=== PATIENT | male | born 1945 | race Caucasian/White ===

== ENCOUNTER 2017-01-26 20:50 | Inpatient (IN) | payer OTHER ==
[~2017-01-26] VITALS: Ht 175.3 cm; Wt 93.1 kg
--- NOTE | ~2017-01-26 | 2DMMODE ---
[facility] [address] [place] [address] 2 D/M-MODE ECHOCARDIOGRAM Name: ELEUTERIO GIRON Room #: 243-P [facility] IN ..#: [id number] Admission: 01/26/17 Attend Phys: Shannon Breen Discharge: Date of : 43 Date of Service: 01/27/17 1534 Report #: [id number] THIS REPORT FOR: //name// APPROVED REPORT EXAM: Comprehensive 2D, Doppler, and color-flow Echocardiogram Patient Location: Bedside Blood Pressure: 137/77 mmHg HR: 80 bpm Other Information Study Quality: Good Indications CAD Hypertension/HDD AAA with Graft repair 2D Dimensions RVDd: 36.25 mm LVEF(%): 64.55 (>50%) IVSd: 13.78 (7-11mm) LVOT Diam: 24.47 (18-24mm) LVDd: 53.35 mm PWd: 14.08 (7-11mm) Ascending Aorta: 32.43 mm LVDs: 34.38 (25-40mm) IVC: 23.00 mm Aortic Root: 36.00 mm Gallegos's LVEF: 64.55 % Volumes Left Atrial Volume (Systole) Single Plane 4CH: 46.48 mL Single Plane 2CH: 45.16 mL LA ESV Index: 26.00 mL/m2 Aortic Valve AoV Peak Larry.: 1.58 m/s AI PHT: 428.70 ms AO Peak Gr.: 9.93 mmHg LV Max P.09 mmHg LV Max: 1.13 m/s AI Vmax: 4.03 m/s AI Tompkins: 3.20 m/s2 Mitral Valve MV PHT: 56.82 ms MV E Max Larry.: 0.65 m/s E/A Ratio: 0.8 [facility] [place] [address] 2 D/M-MODE ECHOCARDIOGRAM Name: GIRONELEUTERIO Shelley Room #: 243-P [facility] IN ..#: [id number] Admission: 01/26/17 Attend Phys: Shannon Breen Discharge: Date of : 43 Date of Service: 01/27/17 1534 Report #: [id number] MV A Larry.: 0.82 m/s MV Decel. Time: 195.93 ms Pulmonary Valve PV Peak Larry.: 1.32 m/s PV Peak Gr.: 5.30 mmHg MI End Vmax: 1.32 m/s Tricuspid Valve TR Peak Larry.: 2.55 m/s RAP Estimate: 10.00 mmHg TR Peak Gr.: 25.98 mmHg Left Ventricle The left ventricle is normal size. There is normal LV segmental wall motion. Mild concentric left ventricular hypertrophy. The left ventricular systolic function is normal. The left ventricular ejection fraction is within the normal range. LVEF is 60-65%. Left ventricular filling pattern is normal for age. Right Ventricle The right ventricle is normal size. The right ventricular systolic function is normal. Atria The left atrium size is normal. Atrial septum is hypermobile. The right atrium size is normal. Aortic Valve The aortic valve is normal in structure. Aortic valve is calcified. Aortic valve is trileaflet. Mild aortic regurgitation. Mitral Valve The mitral valve is normal in structure. Trace mitral regurgitation. Tricuspid Valve The tricuspid valve is normal in structure. There is trace tricuspid regurgitation. The right atrial pressure is estimated at 10 mmHg. There is mild pulmonary hypertension. Pulmonic Valve The pulmonary valve is normal in structure. Trace to mild pulmonic regurgitation. Great Vessels IVC is dilated and collapses >50% with inspiration. [facility] [address] [place] [address] 2 D/M-MODE ECHOCARDIOGRAM Name: ELEUTERIO GIRON Room #: 243-P [facility] IN ..#: [id number] Admission: 01/26/17 Attend Phys: Shannon Breen Discharge: Date of : 43 Date of Service: 01/27/17 1534 Report #: [id number] Pericardium There is no pericardial effusion. <Conclusion> The left ventricular systolic function is normal. Grade I diastolic dysfunction. There is normal LV segmental wall motion. LVEF is 60-65%. The aortic valve is calcified, trileaflet, mildly insufficient. The mitral valve is normal in structure. Trace regurgitation. There is no pericardial effusion. <ELECTRONICALLY SIGNED> By: Paulino Arellano MD, [facility] 01/27/17 1534 1534 1534 Paulino Arellano MD, [facility] /INF
--- NOTE | ~2017-01-26 | HC ---
[facility] [place] [address] CONSULTATION Name: ELEUTERIO GIRON Room #: 243-P [facility] IN M.R.#: [id number] Admission: 01/26/17 Attend Phys: Shannon Ibrahim Discharge: Date of : 43 Report #: [id number] THIS REPORT FOR: //name// CC: Shannon Kahn REASON FOR CONSULTATION: Preoperative abdominal aortic aneurysm resection, history of coronary artery disease. HISTORY OF PRESENT ILLNESS: The patient is a 71-year-old gentleman, who has been seen previously by Dr. Castro. He originally presented many years ago with an episode of what sounds like suddenly cardiac . It was during this time that multivessel coronary artery disease was identified and he underwent surgical revascularization. His left ventricular systolic function is normal. Over the past couple of days, he has noticed his right lower abdominal pain and right groin pain. We have seen in the Emergency Department where evaluation demonstrated a large infrarenal abdominal aortic aneurysm with a stent graft in place and proximal type 1 endoleak. Aneurysm under pressure itself measured about 8 cm. It was significantly hypertensive. He denies chest heaviness or pressure. He usually does check his blood pressure at home. He denies heart failure symptoms including orthopnea, paroxysmal nocturnal dyspnea, lower extremity edema. 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 ALLERGIES: He is allergic to MORPHINE and CODEINE. MEDICATIONS: He takes no medicines on a regular basis. PAST MEDICAL HISTORY: Notable for hypertension, dyslipidemia, abdominal aortic aneurysm stent grafting, coronary artery bypass grafting in 2003. SOCIAL HISTORY: He is a nonsmoker and nondrinker. FAMILY HISTORY: Unremarkable for premature coronary artery disease. REVIEW OF SYSTEMS: All systems negative except as that noted above. PHYSICAL EXAMINATION: GENERAL: Reveals a pleasant gentleman, who is pain free, he is alert. VITAL SIGNS: Blood pressure is 170/57, heart rate of 87 and regular. He is afebrile, 5 feet 9 inches tall, 187 pounds. HEENT: There are neither xanthelasma, subcutaneous xanthomata, oral mucosal or digital cyanosis or kyphoscoliosis present. CHEST: Clear to auscultation and percussion. CARDIOVASCULAR: Regular rate and rhythm with a 1 to 2/6 systolic ejection murmur at the base. [address] [address] CONSULTATION Name: ELEUTERIO GIRON Room #: [facility] IN M.R.#: [id number] Admission: 01/26/17 Attend Phys: Shannon Ibrahim Discharge: Date of : 43 Report #: [id number] ABDOMEN: Soft, pulsatile midline fullness. EXTREMITIES: Without cyanosis, clubbing or edema. Radial pulses are 2+. NEUROLOGIC: He is alert with a nonfocal exam. LABORATORY DATA: Sodium 137, potassium 3.6, creatinine 1.1. Troponin 0. White count 6.9, hemoglobin 14, hematocrit 41, platelet count 217. EKGs, sinus rhythm, right bundle branch block. CT of the abdomen demonstrates 8.3 x 8.4 cm aortic aneurysm with extravasation suggesting endoleak at the proximal anastomosis. Chest x-ray is normal. Echocardiogram, I have reviewed demonstrated normal left ventricular systolic function with mild calcific aortic valve changes without stenosis. Mild aortic insufficiency. IMPRESSION: 1. Large abdominal aortic aneurysm with endoleak. 2. Hypertensive urgency. 3. Dyslipidemia. 4. Coronary artery disease with prior bypass; normal left ventricular systolic function. RECOMMENDATIONS: 1. Aggressive blood pressure management with institution of MARIELA inhibitor, beta blockade. 2. No contraindications exist to proceeding with what appeared to be a fairly urgent open abdominal aortic aneurysm resection. We do not have luxury of performing provocative testing to exclude provocable ischemia in this setting. These issues were discussed with the patient and his family. I will follow along with you. Thank you for asking me to participate in his care. <ELECTRONICALLY SIGNED> By: Paulino Arellano MD, FACC 01/28/17 1215 1602 2351 Paulino Arellano MD, FACC /nt
--- NOTE | ~2017-01-26 | S ---
[facility] [place] [address] SURGICAL PATH RPT PROCEDURE Name: FLOYD MELLO Room #: 243-P ADM IN M.R.#: [id number] Admission: 01/26/17 Date of : 43 Discharge: Report #: [id number] Path Case #: [id number] PATHOLOGY REPORT COLLECTION DATE: 01/30/2017 RECEIVED DATE: 01/30/2017 SUBMITTING PHYS: Dr. Lb Palomares OTHER PHYS: Dr. Shannon Kahn SPECIMEN(S) RECEIVED: A.Abdominal aneurysm * * * * * * * * * * * * FINAL DIAGNOSIS: Abdominal aortic aneurysm, repair: - Fibrinous material associated with associated degenerative changes. - Small portion showing partial aortic wall with myxoid degeneration as well as exudate. (IUV:csd; d/t: 01/31/2017) PATHOLOGIST: Rebekah Wadsworth M.D. REPORT ELECTRONICALLY SIGNED BY: Rebekah Wadsworth M.D. DATE/TIME: 01/31/2017 16:17 * * * * * * * * * * * * GROSS PATHOLOGY: The specimen is received in formalin labeled "Floyd Mello, abdominal aortic grumous". Received is a large amount of light quezada to pink-quezada exceed 8 with attached possible vascular tissue measuring 15.9 x 12.5 x 4.1 cm in aggregate dimensions. The specimen is submitted representatively in cassette A1. (CAA; 01/30/2017) CLINICAL HISTORY: Leaking aortic stents INITIAL CPT CODE(S): A; 77153 Professional services performed by [facility] at [facility] [address], [place] [address] Technical services performed by [facility] at [address] [place] [address] [place] [address] SURGICAL PATH RPT PROCEDURE Name: FLOYD MELLO Room #: 243-P ADM IN M.R.#: [id number] Admission: 01/26/17 Date of : 43 Discharge: Report #: [id number] Path Case #: [id number] [place] [address]. [facility] [address] [place] [address] PHONE: [phone] DIRECTOR: Lux Wahl M.D. * * * END OF REPORT * * *
--- NOTE | ~2017-01-26 | HC ---
[facility] [place] [address] CONSULTATION Name: ELEUTERIO GIRON Room #: 243-P ADM IN .R.#: [id number] Admission: 01/26/17 Attend Phys: Shannon Ibrahim Discharge: Date of : 43 Report #: [id number] THIS REPORT FOR: //name// CC: Shannon Kahn DATE OF SERVICE: 01/27/2017 We were asked to see the patient by the emergency physicians. HISTORY OF PRESENT ILLNESS: The patient is a 71-year-old admitted with a recent history of right groin pain. Symptoms have been waxing and waning for a week. The patient describes it as sharp and puts it at 5/10 scale. The patient also had a similar episode a couple of weeks ago. The patient states that this seems to have been precipitated by some stressful events recently. When seen in the Emergency Department, blood pressure was elevated. The patient admits to having hypertension and does not take medication for it at home. We also note that the patient has a history of an abdominal aortic stent graft placed in [address] scan ordered by the Emergency Department shows a large infrarenal abdominal aortic aneurysm. There is a stent graft in place, but there does appear to be a type 1 endoleak at the proximal neck. It is not well characterized; however, due to the timing of the contrast, the distal portion of the graft seems to be in good position without any evidence of leak at this point. The aneurysm itself is 8 cm, and as mentioned, does appear to be pressurized. There is no leak of the aneurysm per se rather simply an endoleak. The patient has a history of hypertension that is not well treated. MEDICATIONS AT HOME: Aspirin and omega-3 fatty acids. The patient is not taking any antihypertensives, no other blood thinning medication. ALLERGIES: None known. 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 FAMILY HISTORY: No family history of aneurysm. REVIEW OF SYSTEMS: CONSTITUTIONAL: No fever or chills, malaise. RESPIRATORY: Had a chest cold about a month ago, but no recent cough or sputum [facility] [address] [place] [address] CONSULTATION Name: ELEUTERIO GIRON Shelley Room #: 243-P [facility] IN .R.#: [id number] Admission: 01/26/17 Attend Phys: Shannon Ibrahim Discharge: Date of : 43 Report #: [id number]. CARDIOVASCULAR: No angina, no shortness of breath with exertion. GASTROINTESTINAL: No nausea, vomiting or diarrhea. GENITOURINARY: No dysuria or hematuria. MUSCULOSKELETAL: No bone or joint pain. SKIN: No rash or infection. NEUROLOGIC: No motor or sensory dysfunction, no headache, loss of consciousness. HEENT: Eyes, wears glasses. Denies headache. As mentioned, had a recent upper respiratory tract infection, but none now. PHYSICAL EXAMINATION: VITAL SIGNS: Currently, blood pressure 111/64 on an IV Cardene drip, heart rate 86, respiratory rate 20, O2 sat 99 on room air. HEENT: Normocephalic, gaze conjugate. Pupils equal, round. NECK: No mass, no bruit. CHEST: Clear. HEART: Rhythm is regular. ABDOMEN: Soft, no mass, no tenderness. EXTREMITIES: Pulses 2+ femoral, popliteal, dorsalis pedis, posterior tibial . SKIN: No rash or infection. NEUROLOGIC: No motor or sensory loss. PSYCHIATRIC: Affect, mood is somewhat appropriate basically and somewhat of denial, but does seem to understand issues. MUSCULOSKELETAL: No bone or joint dyssymmetry or deformity. IMPRESSION AND PLAN: The patient has a pressurized large abdominal aortic aneurysm that may have been symptomatic recently. The patient states that since blood pressure has been controlled, pain is better, but I am concerned that this large aneurysm is throughout and there is clear endoleak. I have suggested that we repair this on this admission even though it is probably not a new problem. The patient has had inadequate followup with a CT scan only once from the time of the initial stent graft implant and I suspect that this has been insidious growth related to a type 1 endoleak. Risks and details of surgery were discussed. Options and alternatives were reviewed. The patient understands all of this and will reflect and I will review the studies with Dr. Rubi and we will see if we can proceed later. Thank you for the consult. <ELECTRONICALLY SIGNED> By: Lb Palomares MD 02/01/172009 0810 1013 Lb Palomares MD /nt
--- NOTE | ~2017-01-26 | HC ---
[facility] [place] [address] CONSULTATION Name: ELEUTERIO GIRON Room #: 216-P [facility] IN .R.#: [id number] Admission: 01/26/17 Attend Phys: Shannon Ibrahim Discharge: Date of : 43 Report #: [id number] THIS REPORT FOR: //name// CC: Shannon Kahn DATE OF SERVICE: 02/01/2017 ICU Renal Consultation REASON FOR CONSULTATION: Acute kidney injury following open abdominal aortic aneurysm repair. HISTORY OF PRESENT ILLNESS: This 71-year-old male has a longstanding history of atherosclerotic cardiovascular disease. He underwent coronary artery bypass surgery in 2002. He was found to have an enlarging abdominal aortic rhythm in 2010 and underwent percutaneous stent graft at [facility]. He presented to the hospital on 01/26/2017 with complaints of acute abdominal pain and underwent evaluation with findings of a leaking stent graft based upon CT findings. He was taken to the operating room where he underwent an open abdominal aortic aneurysm repair by Dr. Palomares. He tolerated this procedure well. His serum creatinine as low as 1.1 preoperatively, but has risen postoperatively to 2.0 prompting renal consultation. The patient has a longstanding history of hypertension for which he was taking no medications on initial presentation. He has the aforementioned history of coronary artery disease status post coronary artery bypass surgery. He has known dyslipidemia intolerant of STATIN therapy. FAMILY HISTORY: Negative for coronary artery disease. PERSONAL AND SOCIAL HISTORY: The patient does not use tobacco, alcohol or any history of substance abuse. REVIEW OF SYSTEMS: Remarkable for the absence of fevers, chills, sweats, shortness of breath, productive cough, hemoptysis, chest pain. He had the aforementioned abdominal pain on initial presentation to the hospital. He denies evidence of GI blood loss. PHYSICAL EXAMINATION: GENERAL: Reveals a well-developed, well-nourished male who is moderately uncomfortable, seen in the Intensive Care Unit on CONTACT MANAGER. VITAL SIGNS: Blood pressure 134/96, pulse 67. SKIN: Warm and dry. There is no gross clubbing, cyanosis, edema, adenopathy or evidence of cellulitis. [address] [address] CONSULTATION Name: ELEUTERIO GIRON Room #: 216-P [facility] IN M.R.#: [id number] Admission: 01/26/17 Attend Phys: Shannon Ibrahim Discharge: Date of : 43 Report #: [id number] HEENT: The head is normocephalic and atraumatic. There is an introducer in place in the right IJ position. LUNGS: Bahena reveal scattered rhonchi without gross wheezes or evidence of consolidation. CARDIAC: Reveals a regular rate and rhythm. ABDOMEN: Moderately tender with a clean, dry surgical dressing in place. There is a Donaldson catheter in place draining clear yellow urine. NEUROLOGIC: Reveals the patient to be alert and cooperative with a nonfocal exam. LABORATORY STUDIES: Available at this time include sodium 139, potassium 4.4, chloride 109, CO2 21, BUN 36, creatinine 2.0, glucose 146. White blood cell count 11,600, hemoglobin 10.2, hematocrit 30.6, platelet count 139,000. Urinalysis on admission revealed clear yellow urine, specific gravity 1.015, pH 7.5, negative for protein, glucose and blood. ASSESSMENT: 1. Acute kidney injury following open repair of leaking endovascular stent graft. Differential diagnosis includes radiocontrast on CT examination on admission, operative intervention with likely renal atheroembolization or blood pressure related relative renal hypoperfusion. We will check a renal ultrasound with Doppler and check current urinalysis and urine parameters. I believe the patient's renal function will gradually improve over the next several days back to or near his prior baseline. I would advise treatment with an angiotensin converting enzyme inhibitor or ARB medication prior to discharge. 2. Prior aortic stent wrapped with developed endoleak. 3. Status post surgical repair of endoleak. 4. Coronary artery disease status post coronary artery bypass graft in 2002. 5. Untreated hypertension prior to admission. The patient clearly has evidence of widespread atherosclerotic cardiovascular disease and I suspect has very stiff pipes. This would likely lead to a significantly elevated systolic blood pressure with a widened pulse pressure. I would use his mean arterial pressure to guide antihypertensive therapy so as to avoid compromise of vital organ perfusion. 6. Dyslipidemia, intolerant of STATIN therapy. PLAN: We will follow the patient closely with the abovementioned studies to be performed. Please see orders. Critical care time 45 minutes. <ELECTRONICALLY SIGNED> By: Roberth Johnson MD 02/03/17 0824 0923 1205 Roberth Johnson MD /nt
--- NOTE | ~2017-01-26 | EKG ---
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: PAULA : 1945 Requested By: Kary Zamorano Order Number: [id number] MD: Paulino Arellano Measurements Intervals [place] Rate: 64 P: 10 OK: 219 QRS: 62 QRSD: 169 T: -8 QT: 450 QTc: 465 Interpretive Statements Sinus rhythm Borderline prolonged OK interval Right bundle branch block Compared to ECG 05/16/2016 12:36:09 No significant change was found Electronically Signed On 01-27-2017 9:14:12 [employer] by Paulino Arellano [email or web address] <ELECTRONICALLY SIGNED> By: Paulino Arellano MD, [facility] 01/27/17913 15 15 Paulino Arellano MD, [facility] /EPI
--- NOTE | ~2017-01-26 | H ---
[facility] [address] [place] [address] HISTORY AND PHYSICAL Name: ELEUTERIO GIRON Room #: 243-P ADM IN M.R.#: [id number] Admission: 01/26/17 Attend Phys: Shannon Ibrahim Discharge: Date of : 43 Report #: [id number] THIS REPORT FOR: //name// For History and Physical, please see office documentation/handwritten note in the patient's medical record. <ELECTRONICALLY SIGNED> By: Lb Palomares MD 02/01/172009 0954 Lb Palomares MD /
--- NOTE | ~2017-01-26 | O ---
[facility] [place] [address] OPERATIVE REPORT Name: ELEUTERIO GIRON Room #: 216-P [facility] IN M.R.#: [id number] Admission: 01/26/17 Attend Phys: Shannon Ibrahim Discharge: 02/07/17 Date of : 43 Report #: [id number] THIS REPORT FOR: //name// CC: Shannon Kahn DATE OF SERVICE: 01/30/2017 PREOPERATIVE DIAGNOSIS: Abdominal aortic aneurysm. POSTOPERATIVE DIAGNOSIS: Abdominal aortic aneurysm. OPERATION: Open repair of infrarenal abdominal aortic aneurysm. SURGEON: Lb Palomares M.D. DIECAST MACHINE OPERATOR: [place]. ANESTHESIA: General. INDICATIONS: The patient is a 71-year-old with a large infrarenal abdominal aortic aneurysm. The patient had an aortic stent graft placed some years ago, but there is endoleak at the proximal anastomosis and the left iliac limb has pulled back. The aneurysm was pressurized and now measures 8 cm in size. The patient presented to the hospital with groin pain last week and this was found in his evaluation. There is no leak of the aneurysm per se, but the endoleak is pressurizing the aneurysm and the aneurysm is of size and patient has symptoms. FINDINGS AND TECHNIQUE: After general anesthesia was established, exposure was obtained through the midline. Abdominal incision, the intestines were swept aside and the retroperitoneum was exposed, the large infrarenal aneurysm was obvious, the neck of the aneurysm was controlled, it was necessary to establish control above the left renal artery, which actually emanated from the aorta at approximately the 1 o'clock position. The aorta could be controlled below the right renal artery. The iliac arteries were exposed and controlled. There was redundancy of the external iliacs in the retroperitoneum and they were exposed at this level. The 10,000 units of heparin were given. The aorta was occluded below the right renal, but above the left renal artery. The common iliac arteries were occluded. The aneurysm was opened. The stent graft was identified. It did not appear to be infected, but it was surrounded by grumous material, but there was an obvious endoleak at the proximal anastomosis. The suprarenal hooks of the [facility] [address] [place] [address] OPERATIVE REPORT Name: ELEUTERIO GIRON Room #: 216-P DIS IN .R.#: [id number] Admission: 01/26/17 Attend Phys: Shannon Ibrahim Discharge: 02/07/17 Date of : 43 Report #: [id number] device were embedded in the aorta and we took pains to divide the super structure of the graft to leave as little of this remaining. I did not think it would be safe to remove the entire suprarenal fixation portion of the graft, however. When the graft was removed from the neck, it was easily removed from the distal junction areas in the common iliac arteries. The left side had already almost completely pulled out and the right side was not tightly bound. Once the graft was removed, the grumous material in the aorta was removed. Bleeding were ligated. The neck of the aneurysm was inspected and a 22 mm bifurcated graft was selected, an end-to-end anastomosis was made using Luis M technique. When this was complete, the proximal end of the anastomosis was tested and it was found to be satisfactory. Each of the limbs of the graft was sewn to the side of the external iliac on its side. This was in the retroperitoneum above the intestines, not at the peritoneal reflection. Flow was first established to the right side and then the left side. The common iliac arteries were oversewn bilaterally to prevent back flow. When good flow was established and hemostasis was ascertained, Protamine was given to reverse the 10,000 units given prior to aortic cross clamp. When hemostasis was satisfactory, the aneurysm and retroperitoneal tissues were reapproximated to cover the graft. The intestines were replaced in the belly and they were pink, warm and viable. The abdomen was closed in layers with running double stranded PDS for the fascia and Monocryl for the skin. The patient was taken to the recovery area in good condition having tolerated the procedure well with strong distal pulses. All counts reported as correct. <ELECTRONICALLY SIGNED> By: Lb Palomares MD 02/08/171947 04 56 Lb Palomares MD /nt
[~2017-01-26 20:50] MED LIST: ASPIRIN EC81 M1 PO; BYSTOLIC 5 MG5 M1 PO; CRESTOR40 MG; FISH OIL 1,0001 EAC5 PO; LIPITOR20 MG PO; ONDANSETRON HCL4 M2 PO
[2017-01-26 20:51] VITALS: BP 220/111; BP 233/120
[2017-01-26 21:17] LABS: URINE BILIRUBIN NEGATIVE (Negative); URINE BLOOD 1+ (Negative); URINE COLOR YELLOW; URINE GLUCOSE-RANDOM* NEGATIVE (Negative); URINE KETONES NEGATIVE (Negative); URINE NITRITE NEGATIVE (Negative); URINE PROTEIN (DIPSTICK) NEGATIVE (Negative); URINE SPECIFIC GRAVITY 1.015 (1.003-1.035); URINE UROBILINOGEN 0.2 E.U./dl (0.2-1.0)
[2017-01-26 21:23] LABS: ABSOLUTE NEUTROPHILS 4.2 thou/uL (1.4-8.2); BASOPHILS 0.5 % (0.0-2.0); EOSINOPHILS 4.5 % (0.0-3.0); HEMATOCRIT 40.1 % (42.0-52.0); HEMOGLOBIN 13.6 gm/dL (14.0-18.0); LYMPHOCYTES 24.1 % (24.0-44.0); MCHC 33.8 g/dL (28.0-37.0); MCV 85.7 fL (80.0-100.0); MONOCYTES 9.7 % (1.0-8.0); PLATELET COUNT 207 thou/uL (150-400); POLYS 61.2 % (36.0-66.0); RBC 4.68 mil/uL (4.50-6.00); RDW 13.8 % (10.5-14.5); WBC 6.8 thou/uL (4.0-11.0)
[2017-01-26 21:24] LABS: MANUAL DIFF NO
[2017-01-26 21:28] LABS: BACTERIA None Seen /HPF (None Seen); CASTS None Seen /LPF (None Seen); CRYSTALS None Seen /LPF (None Seen); SQUAMOUS None Seen /LPF (0-3); URINE RBC 3-10 Few /HPF (0-2); URINE WBC None Seen /HPF (0-5)
[2017-01-26 21:35] LABS: ANION GAP 6 mmol/L (7-16); BUN 18 mg/dL (7-18); CHLORIDE 101 mmol/L (98-107); CO2 29 mmol/L (21-32); CREATININE 1.2 mg/dL (0.6-1.3); GLUCOSE 141 mg/dL (70-99); POTASSIUM 3.6 mmol/L (3.5-5.1); SODIUM 136 mmol/L (136-145)
[2017-01-26 21:39] LABS: ALBUMIN 3.7 g/dL (3.4-5.0); ALKALINE PHOSPHATASE 123 U/L (46-116); DIRECT BILIRUBIN < 0.1 mg/dL (<0.1-0.3); SGOT 16 U/L (15-37); SGPT 21 U/L (30-65); TOTAL BILIRUBIN 0.3 mg/dL (<0.1-1.0); TOTAL PROTEIN 7.3 g/dL (6.4-8.2)
[2017-01-27] VITALS (44 sets, daily range): BP systolic 104–179; BP diastolic 53–85
[2017-01-27 03:39] LABS: HEMATOCRIT 41.7 % (42.0-52.0); HEMOGLOBIN 14.2 gm/dL (14.0-18.0); MCH 29.3 pg (26.0-34.0); MCHC 34.1 g/dL (28.0-37.0); RBC 4.85 mil/uL (4.50-6.00); RDW 13.9 % (10.5-14.5); WBC 6.9 thou/uL (4.0-11.0)
[2017-01-27 03:50] LABS: CALCIUM 9.2 mg/dL (8.5-10.1); CREATININE 1.1 mg/dL (0.6-1.3); POTASSIUM 3.6 mmol/L (3.5-5.1)
[2017-01-27 09:08] LABS: APTT 23.3 Seconds (24.5-32.8); PROTIME 10.4 Seconds (9.3-11.4)
[2017-01-27 22:25] LABS: HEMATOCRIT 37.9 % (42.0-52.0)
[2017-01-28 00:01] VITALS: BP 106/55
[2017-01-28 04:00] VITALS: BP 116/60
[2017-01-28 05:09] LABS: HEMATOCRIT 36.4 % (42.0-52.0); HEMOGLOBIN 12.3 gm/dL (14.0-18.0); MCH 29.2 pg (26.0-34.0); MCHC 33.8 g/dL (28.0-37.0); MCV 86.2 fL (80.0-100.0); RBC 4.22 mil/uL (4.50-6.00); RDW 14.1 % (10.5-14.5); WBC 8.6 thou/uL (4.0-11.0)
[2017-01-28 05:20] LABS: ALBUMIN 3.1 g/dL (3.4-5.0); CALCIUM 8.3 mg/dL (8.5-10.1); CREATININE 1.9 mg/dL (0.6-1.3); PHOSPHORUS 4.7 mg/dL (2.5-4.9); POTASSIUM 4.4 mmol/L (3.5-5.1)
[2017-01-29 05:28] LABS: HEMATOCRIT 34.8 % (42.0-52.0); HEMOGLOBIN 11.8 gm/dL (14.0-18.0); MCH 29.5 pg (26.0-34.0); MCHC 33.9 g/dL (28.0-37.0); RDW 14.2 % (10.5-14.5); WBC 8.8 thou/uL (4.0-11.0)
[2017-01-29 05:43] LABS: CALCIUM 8.4 mg/dL (8.5-10.1); CREATININE 1.9 mg/dL (0.6-1.3); POTASSIUM 4.6 mmol/L (3.5-5.1)
[2017-01-29 22:03] VITALS: BP 89/46
[2017-01-30] VITALS (11 sets, daily range): BP systolic 110–125; BP diastolic 61–73
[2017-01-30 13:19] LABS: HEMOGLOBIN 10.6 gm/dL (14.0-18.0); MCH 29.7 pg (26.0-34.0); MCHC 34.2 g/dL (28.0-37.0); MCV 86.9 fL (80.0-100.0); RBC 3.57 mil/uL (4.50-6.00); RDW 14.3 % (10.5-14.5); WBC 11.3 thou/uL (4.0-11.0)
[2017-01-30 13:36] LABS: POC BE -5 mmol/L (-2.0 to +3.0); POC FiO2 100 %; POC GLUCOSE 151 mg/dL (70-99); POC HCO3 21.2 mmol/L (22.0-26.0); POC HEMOGLOBIN 9.5 g/dL (14.0-18.0); POC POTASSIUM 5.1 mmol/L (3.5-5.1); POC SODIUM 138 mmol/L (136-145); POC pCO2 39.6 mmHg (35.0-45.0); POC pH 7.336 (7.360-7.450)
[2017-01-30 13:36] LABS: POC BE -3 mmol/L (-2.0 to +3.0); POC FiO2 100 %; POC GLUCOSE 151 mg/dL (70-99); POC HEMOGLOBIN 9.9 g/dL (14.0-18.0); POC SODIUM 139 mmol/L (136-145); POC pCO2 38.7 mmHg (35.0-45.0); POC pH 7.364 (7.360-7.450)
[2017-01-30 13:36] LABS: POC BE 0 mmol/L (-2.0 to +3.0); POC CA IONIZED 4.7 mg/dL (4.5-5.3); POC FiO2 100 %; POC GLUCOSE 113 mg/dL (70-99); POC HCO3 24.6 mmol/L (22.0-26.0); POC HEMOGLOBIN 10.2 g/dL (14.0-18.0); POC POTASSIUM 4.5 mmol/L (3.5-5.1); POC SODIUM 135 mmol/L (136-145); POC pCO2 39.4 mmHg (35.0-45.0); POC pH 7.405 (7.360-7.450)
[2017-01-30 13:37] LABS: INR 1.2; PROTIME 12.7 Seconds (9.3-11.4)
[2017-01-30 20:06] LABS: CALCIUM 7.1 mg/dL (8.5-10.1); POTASSIUM 4.4 mmol/L (3.5-5.1)
[2017-01-31] VITALS (12 sets, daily range): BP systolic 36–142; BP diastolic 15–67
[2017-01-31 04:34] LABS: HEMATOCRIT 30.6 % (42.0-52.0); HEMOGLOBIN 10.2 gm/dL (14.0-18.0); MCH 29.5 pg (26.0-34.0); MCHC 33.5 g/dL (28.0-37.0); MCV 87.9 fL (80.0-100.0); RBC 3.48 mil/uL (4.50-6.00); RDW 14.5 % (10.5-14.5); WBC 11.6 thou/uL (4.0-11.0)
[2017-01-31 04:38] LABS: CALCIUM 7.2 mg/dL (8.5-10.1); POTASSIUM 4.4 mmol/L (3.5-5.1)
[2017-02-01] VITALS (32 sets, daily range): BP systolic 108–156; BP diastolic 59–115
[2017-02-01 09:22] LABS: HEMATOCRIT 28.9 % (42.0-52.0); HEMOGLOBIN 9.8 gm/dL (14.0-18.0); MCH 29.5 pg (26.0-34.0); MCHC 33.9 g/dL (28.0-37.0); RBC 3.32 mil/uL (4.50-6.00); RDW 14.4 % (10.5-14.5); WBC 14.4 thou/uL (4.0-11.0)
[2017-02-01 09:31] LABS: CALCIUM 8.2 mg/dL (8.5-10.1); CREATININE 1.8 mg/dL (0.6-1.3); POTASSIUM 4.6 mmol/L (3.5-5.1)
[2017-02-01 09:40] LABS: URINE BILIRUBIN NEGATIVE (Negative); URINE BLOOD 3+ (Negative); URINE COLOR YELLOW; URINE GLUCOSE-RANDOM* NEGATIVE (Negative); URINE KETONES NEGATIVE (Negative); URINE NITRITE NEGATIVE (Negative); URINE PROTEIN (DIPSTICK) TRACE (Negative); URINE SPECIFIC GRAVITY 1.025 (1.003-1.035); URINE UROBILINOGEN 0.2 E.U./dl (0.2-1.0)
[2017-02-01 09:48] LABS: BACTERIA 1-9 Few /HPF (None Seen); CASTS None Seen /LPF (None Seen); SQUAMOUS None Seen /LPF (0-3)
[2017-02-01 16:08] LABS: URINE CREATININE-RANDOM* 88.7 mg/dL (Not Estab.); URINE PROTEIN-RANDOM* 32.9 mg/dL (Not Estab.)
[2017-02-02] VITALS (10 sets, daily range): BP systolic 117–171; BP diastolic 61–102
[2017-02-02 05:39] LABS: HEMATOCRIT 26.9 % (42.0-52.0); HEMOGLOBIN 9.1 gm/dL (14.0-18.0); MCH 29.8 pg (26.0-34.0); MCHC 33.7 g/dL (28.0-37.0); MCV 88.4 fL (80.0-100.0); RBC 3.05 mil/uL (4.50-6.00); RDW 14.5 % (10.5-14.5); WBC 11.5 thou/uL (4.0-11.0)
[2017-02-02 05:59] LABS: ALBUMIN 2.5 g/dL (3.4-5.0); CALCIUM 7.9 mg/dL (8.5-10.1); CREATININE 1.7 mg/dL (0.6-1.3); PHOSPHORUS 3.2 mg/dL (2.5-4.9); POTASSIUM 4.6 mmol/L (3.5-5.1)
[2017-02-03] VITALS (9 sets, daily range): BP systolic 143–193; BP diastolic 61–95
[2017-02-03 05:28] LABS: HEMATOCRIT 26.1 % (42.0-52.0); HEMOGLOBIN 8.8 gm/dL (14.0-18.0); MCH 29.7 pg (26.0-34.0); MCHC 33.9 g/dL (28.0-37.0); MCV 87.6 fL (80.0-100.0); RBC 2.98 mil/uL (4.50-6.00); RDW 14.1 % (10.5-14.5)
[2017-02-03 05:39] LABS: ALBUMIN 2.6 g/dL (3.4-5.0); CALCIUM 8.4 mg/dL (8.5-10.1); CREATININE 1.6 mg/dL (0.6-1.3); PHOSPHORUS 2.6 mg/dL (2.5-4.9); POTASSIUM 3.9 mmol/L (3.5-5.1)
[2017-02-04 04:06] VITALS: BP 171/88
[2017-02-04 06:13] LABS: ABSOLUTE NEUTROPHILS 6.9 thou/uL (1.4-8.2); BASOPHILS 0.4 % (0.0-2.0); EOSINOPHILS 1.9 % (0.0-3.0); HEMATOCRIT 25.6 % (42.0-52.0); HEMOGLOBIN 8.9 gm/dL (14.0-18.0); LYMPHOCYTES 10.3 % (24.0-44.0); MCH 30.4 pg (26.0-34.0); MCV 86.8 fL (80.0-100.0); MONOCYTES 11.1 % (1.0-8.0); PLATELET COUNT 184 thou/uL (150-400); POLYS 76.3 % (36.0-66.0); RBC 2.94 mil/uL (4.50-6.00); RDW 14.4 % (10.5-14.5)
[2017-02-04 06:16] LABS: MANUAL DIFF NO
[2017-02-04 06:27] LABS: ALBUMIN 2.5 g/dL (3.4-5.0); CREATININE 1.5 mg/dL (0.6-1.3); PHOSPHORUS 2.9 mg/dL (2.5-4.9); POTASSIUM 3.8 mmol/L (3.5-5.1)
[2017-02-04 08:01] VITALS: BP 212/106
[2017-02-04 11:12] VITALS: BP 177/88
[2017-02-04 15:35] VITALS: BP 177/88
[2017-02-04 20:32] VITALS: BP 158/75
[2017-02-04 23:42] VITALS: BP 147/79
[2017-02-05 03:58] VITALS: BP 179/85
[2017-02-05 04:14] LABS: HEMATOCRIT 25.5 % (42.0-52.0); HEMOGLOBIN 8.7 gm/dL (14.0-18.0); MCHC 34.2 g/dL (28.0-37.0); MCV 87.7 fL (80.0-100.0); RBC 2.91 mil/uL (4.50-6.00); WBC 8.6 thou/uL (4.0-11.0)
[2017-02-05 04:28] LABS: ALBUMIN 2.4 g/dL (3.4-5.0); CALCIUM 7.9 mg/dL (8.5-10.1); CREATININE 1.4 mg/dL (0.6-1.3); MAGNESIUM 1.9 mg/dL (1.8-2.4); PHOSPHORUS 2.8 mg/dL (2.5-4.9); POTASSIUM 3.7 mmol/L (3.5-5.1)
[2017-02-05 08:25] VITALS: BP 168/84
[2017-02-05 11:25] VITALS: BP 164/77
[2017-02-05 16:05] VITALS: BP 156/77
[2017-02-05 20:12] VITALS: BP 161/86
[2017-02-06] VITALS (7 sets, daily range): BP systolic 125–150; BP diastolic 66–85
[2017-02-06 04:37] LABS: HEMATOCRIT 23.6 % (42.0-52.0); HEMOGLOBIN 8.2 gm/dL (14.0-18.0); MCH 30.3 pg (26.0-34.0); MCHC 34.7 g/dL (28.0-37.0); MCV 87.2 fL (80.0-100.0); PLATELET COUNT 187 thou/uL (150-400); RBC 2.71 mil/uL (4.50-6.00); RDW 13.8 % (10.5-14.5); WBC 8.2 thou/uL (4.0-11.0)
[2017-02-06 04:52] LABS: ALBUMIN 2.3 g/dL (3.4-5.0); CALCIUM 7.8 mg/dL (8.5-10.1); CREATININE 1.3 mg/dL (0.6-1.3); POTASSIUM 3.6 mmol/L (3.5-5.1); TOTAL BILIRUBIN 0.8 mg/dL (<0.1-1.0); TOTAL PROTEIN 4.8 g/dL (6.4-8.2)
[2017-02-06 05:00] LABS: MANUAL DIFF YES
[2017-02-06 07:14] LABS: ABSOLUTE NEUTROPHILS 6.4 thou/uL (1.4-8.2); TOTAL CELL COUNT 100
[2017-02-07 04:32] LABS: CALCIUM 8.1 mg/dL (8.5-10.1); CREATININE 1.3 mg/dL (0.6-1.3); POTASSIUM 3.5 mmol/L (3.5-5.1)
[2017-02-07 07:19] VITALS: BP 143/66
[2017-02-07] MEDS ORDERED: ATORVASTATIN CA40 MG PO (09:56)
[2017-02-07] MEDS ORDERED: SPIRONOLACTONE25 M1 PO (09:56)
[2017-02-07] MEDS ORDERED: NORVASC10 MG PO (09:56)
[2017-02-07] MEDS ORDERED: HYDROCODON-ACE1 EAC7 PO (09:56)
[2017-02-07] MEDS ORDERED: LASIX 40 MG TAB40 M1 PO (09:56)
[2017-02-07] MEDS ORDERED: BYSTOLIC 5 MG5 M1 PO (09:56)
[2017-02-07] MEDS ORDERED: PRINIVIL20 MG PO (09:56)
[2017-02-07 10:18] VITALS: BP 143/69
[2017-02-07 11:05] VITALS: BP 123/66
[2017-02-07 12:17] VITALS: BP 143/69
== END 2017-02-07 12:10 | disposition home health service (06) | DRG 270 ==
LOC: ER 20:50 → ICU 22:53 → EROBS 22:53 → ICU 01-27 00:06 → 2N 02-02 10:34
PROVIDERS: Emergency Medicine; Hospitalist; Internal Medicine; Internal Medicine Nephrology; Nurse Practitioner Family; Surgery Vascular Surgery
PROC: 03HB33Z Insertion of Infusion Device into Right Radial Artery, Percutaneous Approach (ICD-10-PCS; 2017-01-26)
PROC: 05HC33Z Insertion of Infusion Device into Left Basilic Vein, Percutaneous Approach (ICD-10-PCS; principal; 2017-01-27)
PROC: 04PY0DZ Removal of Intraluminal Device from Lower Artery, Open Approach (ICD-10-PCS; 2017-02-01)
PROC: 04V00D6 (ICD-10-PCS; 2017-02-01)
DX: T82.338A Leakage of other vascular grafts, initial encounter (principal); N17.0 Acute kidney failure with tubular necrosis; K56.7 Ileus, unspecified; I71.4 Abdominal aortic aneurysm, without rupture; I16.0 Hypertensive urgency; E78.5 Hyperlipidemia, unspecified; I25.10 Atherosclerotic heart disease of native coronary artery without angina pectoris; Y83.2 Surgical operation with anastomosis, bypass or graft as the cause of abnormal reaction of the patient, or of later complication, without mention of misadventure at the time of the procedure; I35.1 Nonrheumatic aortic (valve) insufficiency; D50.0 Iron deficiency anemia secondary to blood loss (chronic); N18.9 Chronic kidney disease, unspecified; I12.9 Hypertensive chronic kidney disease with stage 1 through stage 4 chronic kidney disease, or unspecified chronic kidney disease; K59.00 Constipation, unspecified; R00.1 Bradycardia, unspecified; Z79.899 Other long term (current) drug therapy; Y92.89 Other specified places as the place of occurrence of the external cause; Z95.1 Presence of aortocoronary bypass graft; Z87.891 Personal history of nicotine dependence; Z90.49 Acquired absence of other specified parts of digestive tract; Z88.2 Allergy status to sulfonamides; Z88.6 Allergy status to analgesic agent
CPT/HCPCS: 10078; 10081; 27000; 48888; 50010; 50101; 50386; 50455; 51301; 51751; 52095; 54118; 56524; 56526; 56527; 56528; 57092; 57093; 62110; 62900; 64029; 65002; 65003; 65020; 65043; 65090; 65120; 70005

== ENCOUNTER 2019-11-01 19:07 | Inpatient (IN) | payer OTHER ==
[2019-11-01] VITALS (12 sets, daily range): BP systolic 155–223; BP diastolic 65–101
[~2019-11-01] VITALS: Ht 175.3 cm; Wt 90.3 kg
--- NOTE | ~2019-11-01 | HC ---
[facility] [place] [address] CONSULTATION Name: ELEUTERIO GIRON Room #: 355-P [facility] [place] M.R.#: [id number] Admission: 11/01/19 Attend Phys: Jose Guadalupe Cotton MD Discharge: 11/05/19 Date of : 43 Report #: [id number] THIS REPORT FOR: //name// CC: Jose Guadalupe Guevara DATE OF SERVICE: 11/04/2019 HISTORY OF PRESENT ILLNESS: The patient 74-year-old white male who was admitted with acute mental status changes. He had slurred speech, nonsensical, had fallen off of Bobcat 6 to 8 feet. He was initially unresponsive. He had abnormal gait afterwards. He slept for about 3 hours at home, but continued to have problems with some nonsensical speech. There was noted some mild right-sided weakness. He was admitted to [facility]. Evaluation revealed a left frontal intraparenchymal hemorrhage extending to the third and fourth ventricle. This was noted to be an intracranial hemorrhage and my impression is that this is apparently due to hypertension rather than a post-traumatic bleed. He has a followup head CT today. Continuing with blood pressure control as noted. We are seeing him in rehabilitation medicine consultation. Again, with intraparenchymal hemorrhage centered within the left basal ganglia. This is most likely thought to be hypertensive in etiology. PAST MEDICAL HISTORY: Includes hypertension with history of noncompliance, coronary artery disease, prior coronary artery bypass grafting, hypercholesterolemia, and AAA repair. MEDICATIONS: Please see the full medication listing. ALLERGIES: MORPHINE AND SULFA. SOCIAL HISTORY: Lives in a house with his spouse, 2 steps in, flight of steps to the bedroom. Premorbid community ambulator. There is an adult son who has Down's and there is also apparently another couple who lives there and there are other family members that are in the area. REVIEW OF SYSTEMS: Did not offer any current complaints of chest pain, shortness of breath, or abdominal discomfort. PHYSICAL EXAMINATION: GENERAL: A 74-year-old white male in no obvious distress. He is alert. VITAL SIGNS: Last recorded, blood pressure 177/75. He did have a blood pressure of 150/98 yesterday. His temperature this morning is 99.8, pulse 76, respirations 20. NEUROLOGIC: He is alert, he follows basic 1 step commands. He is able to [facility] [address] [place] [address] CONSULTATION Name: EELUTERIO GIRON Room #: 355-P [facility] [place] M.R.#: [id number] Admission: 11/01/19 Attend Phys: Jose Guadalupe Cotton MD Discharge: 11/05/19 Date of : 43 Report #: [id number] respond in one word sentences and some longer sentences. Short term memory; however, was 0 of 3 at 5 minutes. Serial 7's, however, was fairly good. Proverbs were concrete in understanding. Facies appeared symmetric. He might have a depressed flattening of the right nasolabial fold and slight decreased right-sided weakness. Right upper extremity, does reasonably good with fine finger dexterity and no obvious dysmetria. Tone appeared to be intact. I did not assess his gait. Therapies at this point have noted bed to chair, min assist. Gait has been 3 feet, sit to stand with standby assistance. ASSESSMENT: A 74-year-old white male with the following problem list: 1. Intraparenchymal hemorrhage with left basal ganglia and ventricular extension, thought to be hypertensive in etiology. 2. Mild right-sided hemiparesis, which appears to be improved. 3. History of hypertension with some noncompliance. 4. Acute renal insufficiency superimposed on chronic kidney disease. 5. Coronary artery disease with prior coronary artery bypass grafting. 6. Hypercholesterolemia. 7. Abdominal aortic aneurysm repair. PLAN: Further medical/neurologic workup as noted. He has a followup CT of the head today. Note that there is an echo that has ordered as well. Speech therapy to further assess cognition. We will be further assessing his overall functional mobility and ADLs. He certainly may be a candidate for a short acute in-hospital inpatient rehabilitation stay to better maximize his overall functional independence and assess for cognitive/linguistic deficits and to continue with medical management of blood pressure. At this point, we will be glad to follow along with you regarding his rehab therapy needs. Discussion with the patient's family. By: [id number] [id number] Aryan Wilson MD /FADY
[~2019-11-01 19:07] MED LIST changes: +ATORVASTATIN CA40 MG PO; +HYDROCODON-ACE1 EAC7 PO; +LASIX 40 MG TAB40 M1 PO; +NORVASC10 MG PO; +PRINIVIL20 MG PO; +SPIRONOLACTONE25 M1 PO
[2019-11-01 19:37] LABS: ABSOLUTE NEUTROPHILS 5.9 thou/uL (1.4-8.2); BASOPHILS 0.5 % (0.0-2.0); EOSINOPHILS 1.1 % (0.0-3.0); HEMATOCRIT 43.1 % (42.0-52.0); HEMOGLOBIN 14.5 gm/dL (14.0-18.0); LYMPHOCYTES 14.7 % (24.0-44.0); MCH 30.5 pg (26.0-34.0); MCHC 33.7 g/dL (28.0-37.0); MCV 90.5 fL (80.0-100.0); MONOCYTES 6.8 % (1.0-8.0); PLATELET COUNT 218 thou/uL (150-400); POLYS 76.9 % (36.0-66.0); RBC 4.76 mil/uL (4.50-6.00); RDW 13.6 % (10.5-14.5); WBC 7.6 thou/uL (4.0-11.0)
[2019-11-01 19:42] LABS: ANION GAP 7 mmol/L (7-16); BUN 19 mg/dL (7-18); CALCIUM 9.3 mg/dL (8.5-10.1); CHLORIDE 104 mmol/L (98-107); CO2 30 mmol/L (21-32); CREATININE 1.5 mg/dL (0.7-1.3); GLUCOSE 182 mg/dL (74-106); POTASSIUM 4.4 mmol/L (3.5-5.1); SODIUM 141 mmol/L (136-145)
[2019-11-01 19:49] LABS: APTT 23.7 Seconds (24.5-32.8); PROTIME 10.4 Seconds (9.3-11.4)
[2019-11-01 19:52] LABS: ALBUMIN 3.8 g/dL (3.4-5.0); SGOT 16 U/L (15-37); SGPT 27 U/L (30-65); TOTAL BILIRUBIN 0.5 mg/dL (<0.1-1.0); TOTAL PROTEIN 7.3 g/dL (6.4-8.2); TROPONIN-I <0.06 ng/mL (<0.06)
[2019-11-01 21:23] LABS: URINE BILIRUBIN NEGATIVE (Negative); URINE BLOOD NEGATIVE (Negative); URINE CLARITY CLEAR; URINE COLOR YELLOW; URINE GLUCOSE-RANDOM* NEGATIVE (Negative); URINE KETONES NEGATIVE (Negative); URINE LEUKOCYTES-REFLEX NEGATIVE (Negative); URINE NITRITE-REFLEX NEGATIVE (Negative); URINE PROTEIN (DIPSTICK) NEGATIVE (Negative); URINE SPECIFIC GRAVITY 1.015 (1.005-1.035); URINE UROBILINOGEN 0.2 E.U./dl (0.2-1.0)
--- NOTE | 2019-11-01 21:30 | NUR ---
PT ARRIVED FROM ER IN FAIR CONDITION. ADMISSION HX AND ASSESSMENT DOCUMENTED. NIH SCALE 4-5. MILD TO MODERATE EXPRESSIVE APHASIA. ABLE TO MOVE ALL EXTREMITIES. MILD RIGHT FACIAL DROP. DENIES PAIN. BP IN THE , TALKED TO DR. TOMLINSON AT 2214, WAS INFORMED TO CALL DR. COATS. TALKED TO PATENT SEARCHER OF DR. COATS AT 2219, WAS INFORMED TO CONTACT PATENT SEARCHER DOMONIQUE FOR BP CONTROL. ORDERS RECIEVED FROM HERO ALEXANDRA. PT CURRENT BP AT 3 IS 131/61. WILL CONTINUE TO MONITOR PT.
[2019-11-02] VITALS (58 sets, daily range): BP systolic 115–167; BP diastolic 56–82
[2019-11-02 04:54] LABS: CHOLESTEROL 228 mg/dL (<200); HDL CHOLESTEROL 47 mg/dL (>40); LDL CHOLESTEROL 169 mg/dL (<100); TC:HDL 4.9 Ratio (Not establshd); TRIGLYCERIDE 64 mg/dL (<150); VLDL 13 mg/dL (<40)
[2019-11-02 05:03] LABS: SERUM ASSESSMENT Clear
--- NOTE | 2019-11-02 06:21 | NUR ---
P'S NIH IS 2 THIS AM. PT MILD TO MODERATE APHASIA NOTED AND LEF FACIAL DROP. VSS. ON CARDENE GTT TITRATED PER PARAMETERS. NO COMPLAINS CURRENTLY. WILL CONTINUE TO MONITOR
--- NOTE | 2019-11-02 09:43 | EKG ---
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 Can Router: Jorge OATES RN : 1945 Requested By: Azael Marcial Order Number: [id number] MD: Paulino Arellano Measurements Intervals [place] Rate: 89 P: 29 IA: 191 QRS: 19 QRSD: 157 T: -15 QT: 379 QTc: 462 Interpretive Statements Sinus rhythm Right bundle branch block Left ventricular hypertrophy Inferior infarct, age indeterminate Compared to ECG 01/26/2017 21:16:34 No significant change was found Electronically Signed On 11-02-2019 9:43:13 QUALITY PROCESS ENGINEER by Paulino Arellano [email or web address] <ELECTRONICALLY SIGNED> By: Paulino Arellano MD, [facility] 11/02/19 0943 30 30 Paulino Arellano MD, FAC /EPI
--- NOTE | 2019-11-02 18:41 | NUR ---
PATIENT ALERT AND ORIENTED X4, FORGETFUL AT TIMES. PATIENT HAS MILD EXPRESSIVE APHASIA, ON ROOM AIR, NIH SCALE 2 WITH SIGNIFICANT IMPROVEMENT THROUGHT THE SHIFT. PATIENT UP TO CHAIR WITH STANDBY ASSISTANCE. IV CARDENE DISCONTINUED, STARTED PO MEDICATION, SYSTOLIC BLOOD PRESSURE REMAINED BELOW 160. PLAN OF CARE DISCUSSED WITH PATIENT AND FAMILY. BEDSIDE DISCUSSION WITH DR. ALLEN AND DR. TOMLINSON, ALL QUESTIONS ANSWERED. NO SIGN OF ACUTE DISTRESS NOTED AT THIS TIME. WILL CONTINUE TO MONITOR.
[2019-11-03] VITALS (15 sets, daily range): BP systolic 129–158; BP diastolic 64–96
[2019-11-03 02:05] LABS: GLYCOHEMOGLOBIN (HGB A1C) 5.8 % (4.8-5.6)
--- NOTE | 2019-11-03 08:31 | HC ---
[facility] [place] [address] CONSULTATION Name: ELEUTERIO GIRON Room #: 236-P ADM IN M.R.#: [id number] Admission: 11/01/19 Attend Phys: Jose Guadalupe Cotton MD Discharge: Date of : 43 Report #: [id number] THIS REPORT FOR: //name// CC: Jose Guadalupe Kahn Nathaly Buenomen DATE OF SERVICE: 11/02/2019 INDICATION: History of coronary artery disease. HISTORY OF PRESENT ILLNESS: This is a 74-year-old gentleman with a history of CABG, AAA, hypertension, noncompliance, presenting with mental status change. According to his medical records, the patient was brought in by family members for change of his mental status. It seems that he fell off a jus cap machine. He was witnessed to be unresponsive for a while. He then had issues with his gait and had slurred speech. CT scan of the head revealed focal intraparenchymal hemorrhage in the left frontal lobe, caudate nucleus and anterior subinsular cortex. There is local mass effect. Upon initial presentation, he was hypertensive and was started on IV Cardene. We are asked to assess the patient regarding his blood pressure medications. He has been noncompliant with office visits as well as taking his blood pressure medications. The patient is presently awake, alert and oriented. He denies any chest pain or shortness of breath. PAST MEDICAL HISTORY: CABG in 2002. Noncompliance with followup in the offices. History of abdominal aortic aneurysm repair in 2017. Hypertension, hypercholesterolemia. ALLERGIES: MORPHINE and SULFA. MEDICATIONS: None, apparently takes aspirin. SOCIAL HISTORY: Denies tobacco use. FAMILY HISTORY: Negative for premature CAD. REVIEW OF SYSTEMS: A full 10-point review of systems performed. Only the pertinent positives and negatives are described in the HPI. PHYSICAL EXAMINATION: VITAL SIGNS: Blood pressure is 136/60, heart rate is 89 beats per minute. GENERAL APPEARANCE: Well-developed, well-nourished male in no acute distress. HEENT: Normocephalic, atraumatic. Oral mucosa moist. NECK: Supple. [facility] [address] [place] [address] CONSULTATION Name: ELEUTERIO GIRON Room #: 236-P [facility] IN M.R.#: [id number] Admission: 11/01/19 Attend Phys: Jose Guadalupe Cotton MD Discharge: Date of : 43 Report #: [id number] LUNGS: Clear to auscultation. CARDIAC: Regular rate and rhythm, S1, S2 positive. ABDOMEN: Soft, nontender. EXTREMITIES: No cyanosis, no edema. ECG reveals sinus rhythm, right bundle branch block, old inferior wall myocardial infarction. LABORATORY VALUES: LDL is 169. White count 7.6, hemoglobin 14.5, creatinine is 1.5. ASSESSMENT AND PLAN: 1. Intracranial hemorrhage, repeat CT scan performed this morning, results are pending. Neuro followup. 2. Coronary artery disease/coronary artery bypass graft, appears to be stable. Denies any chest pains. 3. Hypertension. Blood pressure is stable with Cardene, we will wean off. He did undergo speech swallow study, results are pending. We will likely require resumption of oral medications one at a time. 4. Hypercholesterolemia, statin medication recommended once his speech and swallow evaluation has been completed. 5. AAA repair. <ELECTRONICALLY SIGNED> By: Dexter Molina MD 11/03/19 0831 1040 0055 Dexter Molina MD /nt
--- NOTE | 2019-11-03 11:51 | NUR ---
PT ANSWERING ORIENTATION QUESTIONS APPROPRIATELY. CHAIRMAN EMERITUS RN STATED THAT PT HAD SOME MILD CONFUSION OVERNIGHT BUT AFTER A FEW HOURS OF CONTINOUS SLEEP HE AWOKE, AND WAS ORIENTED. PT TRANSFERRED TO . REPORT CALLED TO YARELY.
--- NOTE | 2019-11-03 16:11 | NUR ---
PATIENT TRANSFERRED FROM ICU, STABLE ALERT AND ORIENTED X4, ON ROOM AIR, NO COMPLAINTS OF PAIN. PATIENT TRANSFERS WITH STANDBY ASSISTANCE, STABLE ON FEET. FAMILY PRESENT AT THE BEDSIDE. NIH SCORE 2. NO SINGS OF ACUTE DISTRESS NOTED AT THIS TIME. WILL CONTINUE TO MONITOR.
[2019-11-04 04:56] VITALS: BP 150/98
[2019-11-04 07:08] VITALS: BP 149/84
--- NOTE | 2019-11-04 09:02 | 2DMMODE ---
[facility] [place] [address] 2 D/M-MODE ECHOCARDIOGRAM Name: ELEUTERIO GIRON Room #: 355-P ADM IN M.R.#: [id number] Admission: 11/01/19 Attend Phys: Jose Guadalupe Cotton MD Discharge: Date of : 43 Report #: [id number] THIS REPORT FOR: //name// APPROVED REPORT Study performed: 11/04/2019 08:17:03 EXAM: Comprehensive 2D, Doppler, and color-flow Echocardiogram Patient Location: Echo lab Room #: 355 Status: routine BSA: 2.06 HR: 69 bpm BP: 149/84 mmHg Other Information Study Quality: Adequate Indications CVA/TIA CAD Hypertension/HDD HLD, Hx AAA repair 2D Dimensions RVDd: 36.24 mm IVSd: 15.23 (7-11mm) LVOT Diam: 22.91 (18-24mm) LVDd: 45.22 mm PWd: 16.23 (7-11mm) Ascending Ao: 36.25 (22-36mm) LVDs: 35.53 (25-40mm) Aortic Root: 38.17 mm IVC: 17.00 mm Volumes Left Atrial Volume (Systole) Single Plane 4CH: 30.74 mL Single Plane 2CH: 60.49 mL LA ESV Index: 23.00 mL/m2 Aortic Valve AoV Peak Larry.: 1.42 m/s AO Peak Gr.: 8.30 mmHg LVOT Max P.52 mmHg LVOT Max V: 0.79 m/s LIV Vmax: 2.30 cm2 AI Vmax: 5.32 m/s AI Mckinley: 4.07 m/s2 AI PHT: 378.88 ms [facility] [address] [place] [address] 2 D/M-MODE ECHOCARDIOGRAM Name: ELEUTERIO GIRON Room #: [address] [place] [address] IN ..#: [id number] Admission: 11/01/19 Attend Phys: Jose Guadalupe Cotton MD Discharge: Date of : 44 Report #: [id number] Mitral Valve E/A Ratio: 0.4 MV Decel. Time: 222.79 ms MV E Max Larry.: 0.30 m/s MV A Larry.: 0.69 m/s MV PHT: 64.61 ms IVRT: 175.32 ms Pulmonary Valve PV Peak Larry.: 0.83 m/s PV Peak Gr.: 2.73 mmHg Pulmonary Vein P Vein S: 0.56 m/s P Vein A: 0.34 m/s P Vein D: 0.36 m/s P Vein A Dur.: 96.9 msec P Vein S/D Ratio: 1.56 Tricuspid Valve RAP Estimate: 5.00 mmHg Left Ventricle The left ventricle is normal size. There is normal LV segmental wall motion. Moderate concentric left ventricular hypertrophy. The left ventricular systolic function is normal. The left ventricular ejection fraction is within the normal range. LVEF is 55%. Mild diastolic dysfunction. Right Ventricle The right ventricle is normal size. Right ventricle is mildly hypokinetic. Atria The left atrium size is normal. No shunting by contrast bubble injection. The right atrium size is normal. Aortic Valve Aortic valve is moderately calcified, trileaflet Mild aortic regurgitation. There is no aortic valvular stenosis. Mitral Valve The mitral valve is normal in structure. Mild mitral regurgitation. No evidence of mitral valve stenosis. Tricuspid Valve The tricuspid valve is normal in structure. There is no tricuspid valve regurgitation noted. Unable to assess PA pressure. [facility] [address] [place] [address] 2 D/M-MODE ECHOCARDIOGRAM Name: BREESOMERSET Room #: 355-P ADM IN M.R.#: [id number] Admission: 11/01/19 Attend Phys: Jose Guadalupe Cotton MD Discharge: Date of : 43 Report #: [id number] Pulmonic Valve The pulmonary valve is normal in structure. Mild to moderate pulmonic regurgitation. Great Vessels The aortic root is normal in size. IVC is normal in size and collapses >50% with inspiration. Pericardium There is no pericardial effusion. <Conclusion> The left ventricular systolic function is normal. There is normal LV segmental wall motion. Moderate concentric left ventricular hypertrophy. LVEF is 55%. Mild diastolic dysfunction. No shunting by contrast bubble injection. Aortic valve is moderately calcified, trileaflet. Mild aortic regurgitation, no stenosis. The mitral valve is normal in structure. Mild mitral regurgitation. Unable to assess pulmonary artery pressure. There is no pericardial effusion. <ELECTRONICALLY SIGNED> By: Paulino Arellano MD, [facility] 11/04/19900 0 0 Paulino Arellano MD, FAC /INF
[2019-11-04 11:32] VITALS: BP 177/75
--- NOTE | 2019-11-04 12:37 | NUR ---
ASSESSMENT-PT LIVES AT HOME WITH HIS AND AN ADULT SON THAT HAS DOWN'S SYNDROME. PT HAS DTR AND BALA AND GROWN GRANDKIDS THAT ARE IN AND OUT OF THE HOME. SPOUSE HAS BREAST CAN AND LUNG CA AND HAS AN APPT TOMORROW WITH DR PINTO & WILL NEED TO MAKE DECISIONS ON TREATMENT. THEY ALSO HAVE ANOTHER COUPLE THAT LIVES WITH THM TOO. 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 PT HAS HAd chcs in the past. HIS BEDROOM IS LOCATED ON 2ND LEVEL OF THE HOME BUT THERE IS A DOWNSTAIRS BEDROOM TOO. PT WAS NOT USING ANY DME PRIOR TO ADMISSION. THEY HAVE A SHOWER CHAIR AT HOME IF NEEDED. DTR SAYS PHYSICALLY PT IS DOING WELL BUT IS STILL HAVING SOME COGNITIVE ISSUES. [facility] AMY IN PROCESS. DTR ASKING ABOUT REPEAT CT SCAN. CASE DISCUSSED WITH DR ALLEN AND HE WANTS NEURO TO DECIDE ABOUT CT SCAN. FOLLOWING TO ASSIST WITH DC PLANNING.
[2019-11-04 15:59] VITALS: BP 182/77
--- NOTE | 2019-11-04 16:34 | NUR ---
ASSUMED CARE OF PT AT 0700. PT AOX2-3. IN NO ACUTE DISTRESS. HYPERTENSIVE. AGREEABLE TO TAKE BP MEDS THIS MORNING, BUT NOW REFUSING TO TAKE EVENING COREG DOSE. AND NEUROLOGIST AT BEDSIDE DURING THIS "STUBBORN" EPISODE. SAYS THIS IS LARGELY WHY HE IS NON COMPLIANT AT HOME. EVEN REFUSES PRN ANTIHYPERTENSIVES. WILL KEEP ATTEMPTING TO GIVE DOSE.
[2019-11-04 20:04] VITALS: BP 152/70
[2019-11-05 00:30] VITALS: BP 151/80
[2019-11-05 04:25] VITALS: BP 164/81
--- NOTE | 2019-11-05 05:47 | NUR ---
ASSUMED CARE OF PT AT 1900. A&OX3, COOPERATIVE. VS STABLE. SBP IN 150'S. NO MEDS SCHEDULED OVER NOC. SLEEPING MOST OF SHIFT W/ SON AND FAMILY AT BEDSIDE. NO ACUTE DISTRESS. PROGRESSING TOWARDS POC GOALS.
[2019-11-05 07:18] VITALS: BP 136/75
--- NOTE | 2019-11-05 09:38 | NUR ---
PATIENT SEEN BY DR NORIEGA 11/04 FOR REHAB CONSULT. PATIENT IS A CANDIDATE FOR REHAB STAY. COAL GETTER INFORMED. IF PATIENT IS AGREEABLE, ANTICIPATE ADMISSION THIS DATE (11/05/19). THANK YOU FOR THIS REFERRAL.
[2019-11-05 11:19] VITALS: BP 152/81
[2019-11-05] MEDS ORDERED: CARVEDILOL12.5 MG PO (11:50)
--- NOTE | 2019-11-05 14:57 | NUR ---
DISCHARGE NOTE: SW reviewed chart and spoke with nursing and attending physician. [facility] evaluated pt and can accept pt for admission to inpt acute rehab. [facility] clinical rehabilitation specialist and TEAM DRIVER met with pt. Pt and family agreeable with plan to d/c to [facility] at that time. SW is following to assist as needed with discharge planning.
--- NOTE | 2019-11-05 15:14 | NUR ---
ASSUMED PATIENT CARE AT 0700. A/0 X4. MILD APHASIA. UNSTEADY WHEN WLAK. WILL DC TO [facility] SOON.
== END 2019-11-05 15:23 | DRG 85 ==
LOC: ER 19:07 → EROBS 20:35 → 3W 20:35 → ICU 21:22 → 3W 11-03 11:52
PROVIDERS: Emergency Medicine; Nurse Practitioner Acute Care; ADMIT Hospitalist
DX: S06.350A Traumatic hemorrhage of left cerebrum without loss of consciousness, initial encounter (principal); G93.6 Cerebral edema; I16.1 Hypertensive emergency; N17.9 Acute kidney failure, unspecified; I25.810 Atherosclerosis of coronary artery bypass graft(s) without angina pectoris; R47.01 Aphasia; G81.91 Hemiplegia, unspecified affecting right dominant side; W17.89XA Other fall from one level to another, initial encounter; I25.10 Atherosclerotic heart disease of native coronary artery without angina pectoris; E78.5 Hyperlipidemia, unspecified; E78.00 Pure hypercholesterolemia, unspecified; R41.89 Other symptoms and signs involving cognitive functions and awareness; I12.9 Hypertensive chronic kidney disease with stage 1 through stage 4 chronic kidney disease, or unspecified chronic kidney disease; N18.3 Chronic kidney disease, stage 3 (moderate); Z79.82 Long term (current) use of aspirin; Z95.1 Presence of aortocoronary bypass graft; Z88.6 Allergy status to analgesic agent; Z88.2 Allergy status to sulfonamides; Z87.891 Personal history of nicotine dependence; Z91.19 Patient's noncompliance with other medical treatment and regimen; Z84.89 Family history of other specified conditions; Y93.89 Activity, other specified; Y92.89 Other specified places as the place of occurrence of the external cause; Y99.8 Other external cause status
CPT/HCPCS: 10078; 10879

== ENCOUNTER 2019-11-05 12:46 | Inpatient (IN) | payer OTHER ==
[~2019-11-05] VITALS: Ht 177.8 cm; Wt 85.7 kg
--- NOTE | ~2019-11-05 | PLAN ---
[facility] [place] [address] REHAB UNIT PLAN OF CARE Name: ELEUTERIO GIRON Room #: 513-P ADM IN M.R.#: [id number] Admission: 11/05/19 Attend Phys: Aryan Wilson MD Discharge: Date of : 43 Report #: [id number] THIS REPORT FOR: //name// CC: Aryan Kahn DATE OF SERVICE: 11/08/2019 PROGRESS NOTE AND OVERALL PLAN OF CARE SUBJECTIVE: The patient is seen back today in followup. He is in no distress. Last recorded temperature is 98, pulse 85, respirations 16, blood pressure 153/84. He is doing well as far as his functional mobility, independent with transfers. He is allowed independent in his room. In OT, he is supervision for lower body dressing. He does have significant cognitive deficits with moderate cognition and moderate to severe memory deficits. ASSESSMENT: 1. Intraparenchymal hemorrhage, left basal ganglia with ventricular extension. 2. Hypertension with history of medication noncompliance. 3. Memory and cognitive deficit secondary to hemorrhage. 4. Acute renal insufficiency superimposed on chronic kidney disease. 5. Coronary artery disease with history of bypass. 6. Hyperlipidemia. 7. AAA status post history of repair. PLAN: The overall plan of care is based on the preadmission screen, post-admission physician evaluation and information garnered from therapy assessments. 1. Estimated length of stay at this point is through 11/11/2019. Team conference was held today. 2. Medical prognosis is reasonably good. 3. Anticipated interventions includes the interdisciplinary acute inpatient rehabilitation program. 4. Anticipated functional outcomes would be for the patient to further work on mobility, ADLs and cognitive issues to train the family and educate them regarding his deficits and the fact that he will need supervision at home. He is going to need help with pills and bills and should not be driving, should not return to work and no use of any power tools, etc. 5. Discharge destination is back home with and increased family support. 6. Expected therapy by discipline includes PT, OT and speech 1 hour per day [facility] [address] [place] [address] REHAB UNIT PLAN OF CARE Name: ELEUTERIO GIRON Room #: 513-P ADM IN M.R.#: [id number] Admission: 11/05/19 Attend Phys: Aryan Wilson MD Discharge: Date of : 43 Report #: [id number] each five days a week throughout the duration of the acute inpatient rehabilitation stay. Again, team conference was held today as noted above. By: [id number] Aryan Wilson MD /[facility]
--- NOTE | ~2019-11-05 | H ---
[facility] [place] [address] HISTORY AND PHYSICAL Name: ELEUTERIO GIRON Room #: 513-P ADM IN M.R.#: [id number] Admission: 11/05/19 Attend Phys: Aryan Wilson MD Discharge: Date of : 43 Report #: [id number] THIS REPORT FOR: //name// CC: Aryan Kahn DATE OF SERVICE: 11/05/2019 HISTORY AND PHYSICAL AND POST-ADMISSION PHYSICIAN EVALUATION HISTORY OF PRESENT ILLNESS: The patient is a 74-year-old white male originally admitted on 11/01/2019 with acute mental status changes. He had slurred speech, nonsensical, had fallen off a ____ 6-8 feet. He was initially unresponsive. He had abnormal gait afterwards. He slept about 3 hours at home, but continued to have problems with nonsensical speech. He is noted to have some mild right-sided weakness. He was admitted to [facility]. Evaluation revealed a left frontal intraparenchymal hemorrhage extending to the third and fourth ventricle. This was felt to be an intraparenchymal hemorrhage centered in the left basal ganglia and then he had the fall after the stroke. The hemorrhage was most likely thought to be hypertensive in etiology. Thus, this was noted to be an intracranial hemorrhage due to hypertension rather than posttraumatic bleed. The patient was noted to have significant functional mobility, ADL and especially cognitive communication deficits and safety and judgment issues and has been admitted for acute in-hospital inpatient rehabilitation. PAST MEDICAL HISTORY: Includes hypertension with history of noncompliance, coronary artery disease, prior coronary artery bypass grafting, hypercholesterolemia, and AAA repair. MEDICATIONS: Please see the full medication listing. ALLERGIES: MORPHINE AND SULFA. SOCIAL HISTORY: Lives in a house with his , 2 steps in flight of steps to the bedroom. Premorbid community ambulator. There is an adult son who ____ and there is also apparently another couple who lives there and there are other family members that are in the area. REVIEW OF SYSTEMS: No current complaints of chest pain, shortness of breath or abdominal discomfort. PHYSICAL EXAMINATION: GENERAL: A 74-year-old white male in no obvious distress. VITAL SIGNS: Temperature 98.7, pulse 78, respirations 20, and blood pressure 165/93. [address] [address] HISTORY AND PHYSICAL Name: BREELA FARGE Room #: 513-P [facility] IN M.R.#: [id number] Admission: 11/05/19 Attend Phys: Aryan Wilson MD Discharge: Date of : 43 Report #: [id number] NEUROLOGIC: He is alert, follows basic 1 step commands. He has decreased attention. Short-term memory was only 1/3 at 3 minutes. He does better with serial 7's. He is concrete in his thinking processes. CHEST: Sounded clear to auscultation. CARDIOVASCULAR: Regular rate and rhythm. ABDOMEN: Bowel sounds positive, nontender. GENITOURINARY AND RECTAL: Deferred. EXTREMITIES: Facies appeared symmetric. He might have a slight depressed right nasolabial fold. Right upper extremity without obviously dysmetria, strength is grade 4+/5, left upper extremity strength appeared to be 4+/5, bilateral lower extremity strength appeared to be 4+/5. DTRs are trace to 1. Appears to have some mild decreased upper level balance. ASSESSMENT: 1. Intraparenchymal hemorrhage with left basal ganglia and ventricular extension. 2. Hypertension with history of medication noncompliance. 3. Aphasia, decreased memory and communication abilities. 4. Memory and cognitive deficit secondary to hemorrhage. 5. Acute renal insufficiency superimposed on chronic kidney disease. 6. Coronary artery disease with history of bypass. 7. Hyperlipidemia. 8. Abdominal aortic aneurysm with a prior history of repair. PLAN: The patient is being admitted for acute in-hospital inpatient rehabilitation. From a postadmission physician evaluation perspective, there are no relevant changes since the preadmission screening. Please see the above review of prior and current medical and functional conditions and comorbidities. Please see the patient's previous and current functional status. As far as risk of complications, he does have the multiple noted comorbidities. We will have the hospitalist continue to follow along regarding his hypertension management. Measurable functional goals would be for him to become modified independent with transfers, mobility and ADLs as well as cognition, communication, so that he can return back to the home setting. Prognosis is reasonably good with estimated length of stay probably at least 6-10 days pending progress. Potential barriers would include his multiple medical comorbidities and decreased functional status. By: [id number] Aryan Wilson MD /nt
[~2019-11-05 12:46] MED LIST changes: +CARVEDILOL12.5 MG PO
[2019-11-05 17:01] VITALS: BP 160/81
--- NOTE | 2019-11-05 17:45 | NUR ---
PT ADMITED TO REHAB AT 1545 FOR INTRAPARENCHYMAL HEMORRAHGE WITH LEFT BASAL GANGLIA AND VENTRICULAR EXTENXION R/T HYPERTENSIVE. PT ALERT AND ORIENTED X4. ABLE TO VOICE HIS OWN NEEDS. B/P 160/81 HR 78. PT IS ONLY ON CARVEDILOL 12.5MG AND ASPIRIN. FAXED ADMISSION MED LIST TO PHARMACY. WILL GIVE MED ONCE MED AVAILABLE. DISCUSSED ABOUT REHAB PROGRAM AND SCHEDULE, ENCOURAGED PT TO PARTICIPATE WITH THERAPY. HIS GOAL IS TO GET STRONGER. PT SIGNED CONTRACT FOR SAFETY AND CONSENT FOR TREATMENT. REASSESSMENT PER CHART. LUNG SOUND CLEAR. PULSE 2/2, SKIN INTACT, NO IV. DENIES PAIN, SOB, N/V. HAS GOOD FAMILY SUPPORT.ATE 90% DINNER. FAMILY AT BEDSIDE. FALL PRECAUTION IN PLACE. CALL LIGHT WITHIN REACH. WILL GIVE REPORT TO NIGHT NURSE TO CONTLennyUE TO MONITOR.
[2019-11-05 19:26] VITALS: BP 165/93
--- NOTE | 2019-11-06 04:19 | NUR ---
assumed care at approx 1900 evening 11/05. pt lying in bed with head of bed elevated at change of shift. family at bedside and daughter staying the night sleeping on cot. pt somewhat difficult to understand speech as it is quiet and somewhat mumbles when talking. pt up to bathroom with standby assist voiding in toilet standing up. pt now back to bed appears to be sleeping soundly with hourly rounding checks. bed alarm on and call light in reach. will continue to monitor.
[2019-11-06 05:52] LABS: HEMATOCRIT 43.4 % (42.0-52.0); HEMOGLOBIN 14.5 gm/dL (14.0-18.0); MCH 30.4 pg (26.0-34.0); MCHC 33.5 g/dL (28.0-37.0); MCV 90.7 fL (80.0-100.0); RBC 4.78 mil/uL (4.50-6.00); RDW 13.4 % (10.5-14.5)
[2019-11-06 05:58] LABS: CALCIUM 9.4 mg/dL (8.5-10.1); CREATININE 1.3 mg/dL (0.7-1.3)
[2019-11-06 08:30] VITALS: BP 149/86
--- NOTE | 2019-11-06 11:40 | NUR ---
chart review. pt up in recliner chair. he is a & o x 3, flat affect, with some forgetfulness and able to make his needs know. he lives in house with his and older son with downs syndrome , steps to enter and 12 steps inside with handrail. has shower chair. manage own medication. drives vehicle and had [facility] home health in the past. will cont following as needed for dc needs. pt spouse recently dx with cancer. has daughter support as well.
--- NOTE | 2019-11-06 15:02 | NUR ---
Patient participated in community reintegration on 11/06/19 with PHYSICAL THERAPY. Refer to documentation by PHYSICAL THERAPY.
--- NOTE | 2019-11-06 15:51 | NUR ---
Patient participated in community reintegration on 11/06/19 with PHYSICAL THERAPY. Refer to documentation by PT. SHERYL
--- NOTE | 2019-11-06 18:20 | NUR ---
ASSUMED CARE AT 0700, A&O X 3 WITH MILD CONFUSION. FAMILY VISITED THROUGHOUT THE DAY. CONDITION STABLE. VS STABLE - ELEVATED BP, O2 ON RA. NO IV, UP WITH ASSIST X 1, ABLE TO AMBULATE WITH SUPERVISION. PT NON COMPLIANT WITH BP MEDICINE. DAUGHTER NOTED THAT PT DOES NOT TAKE BP MEDICINE AT HOME AND INSISTED THAT A BP OF 149/86 WAS NORMAL. EDUCATED PT AND DAUGHTER ON THE POSSIBLE CONSEQUENCES OF NOT TAKING BP MEDICINE BUT PT STILL REFUSED. PROVIDER WAS NOTIFIED AND SPOKE TO PT. PT BP 161/73 AT 1720, PT AGREED TO TAKE MEDICINE BUT ONLY TOOK 6.25MG COREG (HALF THE DOSE) STATED THAT HE DOES NOT NEED ANOTHER PILL AND THAT IT WAS TOO MUCH MEDICINE. REEDUCATED PT ABOUT MEDICATION BUT PT STILL REFUSED. PT TOLERATED THERAPY TODAY, LAST BM 11/06/19, BED IN LOWEST POSITION, CALL LIGHT WITHIN REACH, WILL CONTINUE TO MONITOR PER POC.
[2019-11-06 19:18] VITALS: BP 166/91
--- NOTE | 2019-11-07 01:24 | NUR ---
PT ALERT AND ORIENTED X 4. MODIFIED INDEPENDENT IN ROOM. PT ONLY TOOK 1 TABLET OF LIPITOR AT HS WHEN 2 ARE ORDERED. BP 166/91 AT START OF SHIFT. RECHECKED AT 2230 AND IT WAS 160/85. PT AND FAMILY MEMBERS SATISFIED WITH BP. PT DENIES PAIN OR DISCOMFORT. BED ALARM ON FOR SAFETY. PT APPEARS TO BE SLEEPING ON HOURLY ROUNDS. FAMILY MEMBER HERE DURING THE NIGHT.
[2019-11-07 09:00] VITALS: BP 147/87
--- NOTE | 2019-11-07 18:21 | NUR ---
ASSUMED CARE AT 0700, PATIENT A&O X 4 WITH MILD CONFUSION. NO ACUTE DISTRESS DURING SHIFT. CONDITION STABLE, VS STABLE (ELEVATED BP), O2 ON RA. PT MODIFIED INDEPENDENT X 1, DENIES ANY PAIN OR DISCOMFORT AND HAS NO IV ACCESS. PT ONLY TOOK HALF OF AM COREG, ENCOURAGED PT TO TAKE MEDICINE HOWEVER PT DOES NOT SEEM TO UNDERSTAND WHY HE NEEDS TO TAKE BP MEDS. FAMILY VISITED IN THE EVENING AND PT TOOK MEDS WHEN ENCOURAGED BY FAMILY. PT TOLERATED THERAPY WELL; BED IN LOWEST POSITION, CALL LIGHT WITHIN REACH, WILL CONTINUE TO MONITOR PER POC.
[2019-11-07 21:34] VITALS: BP 187/98
[2019-11-07 23:57] VITALS: BP 159/87
--- NOTE | 2019-11-08 02:22 | NUR ---
PT ALERT AND ORIENTED X 4, CONFUSED AT TIMES. MODIFIED INDEPENDENT IN ROOM. BP 187/98 AT START OF SHIFT. PT STATED HE WOULD NOT TAKE ANY BP MEDS SO DR NOT CALLED. BP 159/87 AT MIDNIGHT. PT ONLY TOOK 1/2 DOSE OF LIPITOR AT HS. PT DENIES PAIN OR DISCOMFORT. PT APPEARS TO BE SLEEPING ON HOURLY ROUNDS.
[2019-11-08 08:30] VITALS: BP 153/84
--- NOTE | 2019-11-08 11:57 | NUR ---
ASSUMED CARE AT 0700, REPORTS SLEPT GOOD LAST NIGHT. PATIENT A&O X 4 WITH MILD CONFUSION. PT HAS BEEN WORKING WELL THIS WRITE. B/P 153/84, HR 85. TOOK HIS MEDS ORDERED. UP TO DINNING FOR BREAKFAST. PT HAS BEEN UP AND PARTICIPATES WELL WITH THERAPY. PT MODIFIED INDEPENDENT X 1, DENIES ANY PAIN OR DISCOMFORT AND HAS NO IV ACCESS. TOLERATED THERAPY WELL; CALL LIGHT WITHIN REACH, WILL CONTINUE TO MONITOR. UP TO DINNING ROOM FOR LUNCH NOW.
--- NOTE | 2019-11-08 12:30 | NUR ---
team meeting, recommendation: no return to work until cleared by prim care MD, no driving until cleared by prim care MD. or daughter to assist with bills and pills. nursing to education on bp and check. dc 23 hh ( nursing and st) and transfer to outpt st if needed. outpt neuro pysch.
--- NOTE | 2019-11-08 12:53 | NUR ---
DISCHARGE PLANNING. DC PLAN IS FOR PATIENT TO DISCHARGE TO HOME WITH HOME HEALTH SERVICES. PATIENT REFERRAL FAXED TO [facility] FOR REVIEW. AWAITING RESPONSE. FOLLOWING.
[2019-11-08 20:00] VITALS: BP 145/80
--- NOTE | 2019-11-09 02:26 | NUR ---
assumed care at approx 1900 evening 11/08. pt ambulating around unit at change of shift tolerating well. pt modified independent. pt took hs med with water tolerating well. pt denied complaints. family staying at bedside sleeping on cot in room. pt appears to be sleeping soundly. call light in reach. will continue to monitor.
[2019-11-09 07:41] VITALS: BP 150/84
--- NOTE | 2019-11-09 13:11 | NUR ---
ASSUMED CARE AT 0700, REPORTS DIDN'T SLEEP WELL LAST NIGHT UNTIL 3AM AFTER TOOK PRN TYLENOL. PATIENT A&O X 4 WITH MILD CONFUSION. REFUSES TAKING MEDS EARLIER. ENCOURAGED PT TO TO TAKE MEDS ORDERED TO PREVENT STROKE. C/O BUTTOCK SORE, RATES PAIN 3/10. GAVE PRN TYLENO MEDS ORDERED. UP TO DINNING FOR MEALS. PT HAS BEEN UP AND PARTICIPATES WELL WITH THERAPY. PT MODIFIED INDEPENDENT X 1 CALL LIGHT WITHIN REACH, WILL CONTINUE TO MONITOR. PT WALKS AROUND THE UNIT WHEN HE GETS BORED. STAFF OFFER SUPPORT AND ENCOURAGEMENT. WOULD LIKE PT TO BE DISCHARGE ON MONDAY. DR. NORIEGA IS AWARE. PT IS WORKING WITH PT IN THE GYM NOW.
[2019-11-09 19:33] VITALS: BP 155/81
--- NOTE | 2019-11-10 03:59 | NUR ---
PATIENT UP AT HS WITH STEADY GAIT AND DENYING PAIN. HAS BEEN SEEN SLEEPING AT EACH CHECK SINCE THEN, OVERNIGHT VISITOR IN ROOM.
[2019-11-10 08:15] VITALS: BP 146/91
--- NOTE | 2019-11-10 16:08 | NUR ---
PT ALETY AND ORIENTED TIMES FOUR. VSS, PT DENIES PAIN/SOA. PT TOLERATES MEDS AND MEALS. PT UP AMBULATING IN THE HALLWAYS WITH STEADY GAIT. FAMILY AT BEDSIDE. PT PROGRESSING TOWRADS POC GOALS.
[2019-11-10 19:32] VITALS: BP 150/82
--- NOTE | 2019-11-11 03:35 | NUR ---
STEADY GAIT UP MODIFIED INDEPENDENT IN ROOM. FAMILY MEMBERS STAYING WITH PATIENT, PLANS FOR GOING HOME TODAY
[2019-11-11 08:00] VITALS: BP 145/81
[2019-11-11] MEDS ORDERED: TYLENOL325 MG PO (08:30)
[2019-11-11] MEDS ORDERED: BYSTOLIC 5 MG5 M1 PO (08:30)
[2019-11-11] MEDS ORDERED: LIPITOR10 MG PO (08:30)
[2019-11-11 09:07] VITALS: BP 145/81
[2019-11-11 09:23] VITALS: BP 145/81
--- NOTE | 2019-11-11 09:45 | NUR ---
ASSUMED CARE AT 0700. PATIENT IS ALERT AND AWAKE. PATIENT IS UP AMBULATING IN THE [place] WITH FAMILY. UP TO THE DINING ROOM FOR MEALS. PATIENTS LUNGS ARE CLEAR. ABD IS SOFT WITH BSX4. PATIENT HAD BM ON 11/09/19. UP TO THE BATHROOM TO VOID NAIN COLORED URINE. FALL AND SAFETY PROTOCOLS IN PLACE. DENIES PAIN AT THIS TIME. CONTINUES TO WORK WITH THERAPY. FAMILY AT BEDSIDE. WILL CONTINUE TO MONITER.
--- NOTE | 2019-11-11 09:50 | NUR ---
DISCHARGE INSTRUCTIONS GIVEN TO AND DAUGHTERS. PATIENT WILL LEAVE AFTER ST TODAY. PATIENT TO F/U WITH DR. PINTO OFFICE IN 2 WEEKS. NO DRIVING, NO RETURN TO WORK UNTIL RELEASED BY DR. PINTO. [facility] COMPLETED. [facility]D.
== END 2019-11-11 10:49 | disposition home health service (06) | DRG 65 ==
LOC: ENTRNSPT 11-11 10:40 → EDTRNSPTSTS 11-11 10:41
PROVIDERS: Nurse Practitioner Family; ADMIT Physical Medicine & Rehabilitation
DX: I61.6 Nontraumatic intracerebral hemorrhage, multiple localized (principal); R47.01 Aphasia; N17.9 Acute kidney failure, unspecified; R47.81 Slurred speech; I25.10 Atherosclerotic heart disease of native coronary artery without angina pectoris; E78.00 Pure hypercholesterolemia, unspecified; N18.9 Chronic kidney disease, unspecified; I12.9 Hypertensive chronic kidney disease with stage 1 through stage 4 chronic kidney disease, or unspecified chronic kidney disease; E78.5 Hyperlipidemia, unspecified; Z88.6 Allergy status to analgesic agent; Z88.2 Allergy status to sulfonamides; Z95.1 Presence of aortocoronary bypass graft; Z91.19 Patient's noncompliance with other medical treatment and regimen; Z86.79 Personal history of other diseases of the circulatory system; Z91.14 Patient's other noncompliance with medication regimen; Z82.49 Family history of ischemic heart disease and other diseases of the circulatory system
CPT/HCPCS: 10112

== ENCOUNTER → 2019-11-14 | Outpatient (CLI) | payer OTHER ==
[~2019-11-14] MED LIST changes: +LIPITOR10 MG PO; +TYLENOL325 MG PO
== END ==
LOC: CAT 09:51 → RAD 09:51
DX: I63.81 Other cerebral infarction due to occlusion or stenosis of small artery (principal); M47.814 Spondylosis without myelopathy or radiculopathy, thoracic region; I62.9 Nontraumatic intracranial hemorrhage, unspecified; M25.78 Osteophyte, vertebrae; M51.36 Other intervertebral disc degeneration, lumbar region; M12.88 Other specific arthropathies, not elsewhere classified, other specified site

== ENCOUNTER → 2020-12-18 | Outpatient (CLI) | payer OTHER | LOC: ULTRA 09:29 | PROVIDERS: ATTEND Nurse Practitioner | DX: M25.461 Effusion, right knee (principal) ==

== ENCOUNTER → 2021-07-21 | Outpatient (CLI) | payer OTHER | LOC: SJCVC 10:19 | PROVIDERS: ATTEND Internal Medicine Cardiovascular Disease | DX: R94.31 Abnormal electrocardiogram [ECG] [EKG] (principal); I45.10 Unspecified right bundle-branch block; I25.10 Atherosclerotic heart disease of native coronary artery without angina pectoris; I10 Essential (primary) hypertension; E78.00 Pure hypercholesterolemia, unspecified; I61.9 Nontraumatic intracerebral hemorrhage, unspecified; I70.1 Atherosclerosis of renal artery; I73.9 Peripheral vascular disease, unspecified; R06.00 Dyspnea, unspecified; R53.1 Weakness; Z95.828 Presence of other vascular implants and grafts; Z95.1 Presence of aortocoronary bypass graft; Z87.891 Personal history of nicotine dependence; Z79.899 Other long term (current) drug therapy; Z79.82 Long term (current) use of aspirin; Z88.5 Allergy status to narcotic agent; Z88.2 Allergy status to sulfonamides ==

== ENCOUNTER 2021-09-10 15:27 | Emergency (ER) | payer OTHER ==
[~2021-09-10] VITALS: Ht 170.2 cm; Wt 90.7 kg
[2021-09-10] MEDS ORDERED: CEPHALEXIN500 MG PO (18:06)
[2021-09-10 18:16] VITALS: BP 179/81
== END 2021-09-10 18:15 | disposition home or self-care (01) ==
LOC: ER 15:27
DX: S01.81XA Laceration without foreign body of other part of head, initial encounter (principal); I25.10 Atherosclerotic heart disease of native coronary artery without angina pectoris; E78.5 Hyperlipidemia, unspecified; Z79.891 Long term (current) use of opiate analgesic; Z98.890 Other specified postprocedural states; Z79.82 Long term (current) use of aspirin; Z79.899 Other long term (current) drug therapy; Z88.5 Allergy status to narcotic agent; Z88.2 Allergy status to sulfonamides; Z87.891 Personal history of nicotine dependence; W45.8XXA Other foreign body or object entering through skin, initial encounter; Y93.89 Activity, other specified; Y92.89 Other specified places as the place of occurrence of the external cause; Y99.8 Other external cause status

== ENCOUNTER → 2021-09-22 | Outpatient (CLI) | payer OTHER ==
[~2021-09-22] MED LIST changes: +CEPHALEXIN500 MG PO
== END ==
LOC: SJCVCIMAG 14:48 → SJCVC 14:48
PROVIDERS: ATTEND Internal Medicine Cardiovascular Disease
DX: R94.31 Abnormal electrocardiogram [ECG] [EKG] (principal); I65.23 Occlusion and stenosis of bilateral carotid arteries; R55 Syncope and collapse; I25.10 Atherosclerotic heart disease of native coronary artery without angina pectoris; I10 Essential (primary) hypertension; E78.00 Pure hypercholesterolemia, unspecified; I70.1 Atherosclerosis of renal artery; I73.9 Peripheral vascular disease, unspecified; R53.1 Weakness; Z95.1 Presence of aortocoronary bypass graft; I71.4 Abdominal aortic aneurysm, without rupture; Z79.82 Long term (current) use of aspirin; Z79.899 Other long term (current) drug therapy; Z87.891 Personal history of nicotine dependence; Z88.5 Allergy status to narcotic agent; Z88.2 Allergy status to sulfonamides

== ENCOUNTER → 2021-09-27 | Emergency (ER) | payer OTHER | LOC: ER 10:08 | DX: R56.9 Unspecified convulsions (principal); Z53.21 Procedure and treatment not carried out due to patient leaving prior to being seen by health care provider ==

== ENCOUNTER 2021-10-04 02:47 | Emergency (ER) | payer OTHER ==
[~2021-10-04] VITALS: Ht 175.3 cm; Wt 86.2 kg
[2021-10-04 04:17] LABS: ABSOLUTE NEUTROPHILS 3.6 thou/uL (1.4-8.2); BASOPHILS 0.3 % (0.0-2.0); EOSINOPHILS 2.1 % (0.0-3.0); HEMATOCRIT 38.2 % (42.0-52.0); HEMOGLOBIN 13.2 gm/dL (14.0-18.0); LYMPHOCYTES 17.2 % (24.0-44.0); MCH 30.8 pg (26.0-34.0); MCHC 34.6 g/dL (28.0-37.0); MONOCYTES 13.2 % (1.0-8.0); PLATELET COUNT 245 thou/uL (150-400); POLYS 67.2 % (36.0-66.0); RBC 4.29 mil/uL (4.50-6.00); RDW 13.3 % (10.5-14.5); WBC 5.4 thou/uL (4.0-11.0)
[2021-10-04 04:21] LABS: CALCIUM 8.6 mg/dL (8.5-10.1); CREATININE 1.1 mg/dL (0.7-1.3); POTASSIUM 3.8 mmol/L (3.5-5.1)
[2021-10-04 04:33] LABS: URINE BILIRUBIN NEGATIVE (Negative); URINE BLOOD TRACE (Negative); URINE CLARITY CLEAR; URINE COLOR YELLOW; URINE GLUCOSE-RANDOM* NEGATIVE (Negative); URINE KETONES NEGATIVE (Negative); URINE LEUKOCYTES-REFLEX NEGATIVE (Negative); URINE NITRITE-REFLEX NEGATIVE (Negative); URINE PROTEIN (DIPSTICK) NEGATIVE (Negative); URINE SPECIFIC GRAVITY 1.015 (1.005-1.035)
[2021-10-04 05:30] VITALS: BP 149/80
--- NOTE | 2021-10-04 06:54 | EKG ---
[place] [address] [facility] [employer] [address] ELECTROCARDIOGRAM REPORT Name: ELEUTERIO GIRON Room #: DEP FRANCINE Mcghee#: [id number] Admission: 10/04/21 Attend Phys: Discharge: 10/04/21 Date of : 43 Report #: [id number] 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 : 1945 Requested By: Oziel Wong Order Number: [id number] MD: Cullen Menchaca Measurements Intervals [place] Rate: 63 P: 20 OR: 201 QRS: 1 QRSD: 171 T: -4 QT: 460 QTc: 471 Interpretive Statements Sinus rhythm Right bundle branch block Left ventricular hypertrophy Baseline wander in lead(s) I,II,aVR Compared to ECG 11/01/2019 19:31:36 Myocardial infarct finding no longer present Electronically Signed On 10-04-2021 6:54:03 FIELD SERVICE CONSULTANT by Cullen Menchaca [email or web address] <ELECTRONICALLY SIGNED> By: Cullen Menchaca MD, [facility] 10/04/21 [id number] Cullen Menchaca MD, FACC /EPI
== END 2021-10-04 05:30 | disposition home or self-care (01) ==
LOC: ER 02:47
PROVIDERS: Student in an Organized Health Care Education/Training Program
DX: F41.9 Anxiety disorder, unspecified (principal); G47.00 Insomnia, unspecified; I25.10 Atherosclerotic heart disease of native coronary artery without angina pectoris; E78.5 Hyperlipidemia, unspecified; I71.9 Aortic aneurysm of unspecified site, without rupture; Z86.16 Personal history of COVID-19; Z98.890 Other specified postprocedural states; Z79.82 Long term (current) use of aspirin; Z79.899 Other long term (current) drug therapy; Z79.891 Long term (current) use of opiate analgesic; Z88.5 Allergy status to narcotic agent; Z88.2 Allergy status to sulfonamides; Z87.891 Personal history of nicotine dependence

== ENCOUNTER → 2021-10-21 | Outpatient (CLI) | payer OTHER ==
[2021-10-21 11:25] LABS: CREATININE 1.1 mg/dL (0.7-1.3)
== END ==
LOC: MRI 10:36 → LAB 16:57 → MRI 17:01
PROVIDERS: ATTEND Family Medicine
DX: I67.82 Cerebral ischemia (principal); I69.359 Hemiplegia and hemiparesis following cerebral infarction affecting unspecified side; R53.1 Weakness

== ENCOUNTER → 2021-10-21 | Outpatient (CLI) | payer OTHER | LOC: SJCVCIMAG 09-16 16:23 | PROVIDERS: ATTEND Internal Medicine Cardiovascular Disease | DX: I70.1 Atherosclerosis of renal artery (principal); I35.1 Nonrheumatic aortic (valve) insufficiency; I45.10 Unspecified right bundle-branch block; I71.4 Abdominal aortic aneurysm, without rupture; I10 Essential (primary) hypertension; I25.10 Atherosclerotic heart disease of native coronary artery without angina pectoris; E78.5 Hyperlipidemia, unspecified; Z95.1 Presence of aortocoronary bypass graft ==